=== PATIENT | female | born 1990 | race Caucasian/White ===

== ENCOUNTER → 2017-12-24 16:47 | Outpatient (CLI) | payer OTHER, SELFPAY ==
[2017-12-30 10:31] LABS: HPV Reflexed? NOT INDICATED
== END ==
PROVIDERS: Visit Provider Obstetrics & Gynecology
DX: Z12.4 Encounter for screening for malignant neoplasm of cervix (principal); Z12.72 Encounter for screening for malignant neoplasm of vagina
CPT/HCPCS: 88175; G0145

== ENCOUNTER 2021-02-16 12:13 | Emergency (ER) | payer OTHER, SELFPAY ==
[2021-02-16 12:14] VITALS: BP 143/82; PULSE 88; RESP 18; TEMP 37.1; O2SAT 100; BMI 29.9
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
[2021-02-16 15:33] VITALS: PULSE 82; RESP 17; O2SAT 100
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
--- NOTE | 2021-02-19 10:34 | CM.ED ---
SW Note SW followed up to safety plan that was completed on 02/16/21. SW called patient and she said that she is doing alot better. Patient said that she had slept good the last two nights. Patient has appointment with [facility] IOP/PHP today at 2:00pm. Patient was appreciative of call back. No further SW needs or issues at this time. Plan: Follow up with IOP/PHP Anat HEBERT
== END 2021-02-16 15:34 | disposition home or self-care (01) ==
PROVIDERS: Emergency Provider Emergency Medicine; PCP Family Medicine
DX: F51.4 Sleep terrors [night terrors] (principal)
CPT/HCPCS: 99282

== ENCOUNTER 2021-07-19 16:16 | Outpatient (CLI) | payer OTHER, SELFPAY ==
--- NOTE | 2021-07-19 16:18 | RAD_ITS ---
HISTORY: cough -- STAT. TECHNIQUE: XR Chest 2 Views. # of images incl. paperwork: 2. COMPARISON: None. FINDINGS: CARDIOMEDIASTINAL STRUCTURES: Cardiac silhouette not enlarged. Mediastinal contour unremarkable. LUNGS: Radiographically clear. PLEURA: No pleural effusion or pneumothorax. OSSEOUS STRUCTURES: Unremarkable. RAD/Chest PA and Lateral IMPRESSION: No radiographic evidence of acute cardiopulmonary disease. at 1645 Reported and signed by: Gayla Ray MD Electronically Signed: Gayla Ray MD at 16:44 EST ,
== END 2021-07-19 23:59 | disposition home or self-care (01) ==
LOC: MTRAD 16:17
PROVIDERS: PCP Family Medicine; Referring Provider Physician Assistant; Visit Provider Physician Assistant
DX: R05.9 Cough, unspecified (principal)
CPT/HCPCS: 71046

== ENCOUNTER 2022-06-25 15:59 | Emergency (ER) | payer OTHER, SELFPAY ==
[2022-06-25 16:00] VITALS: BP 140/86; PULSE 72; RESP 18; TEMP 36.6; O2SAT 99; BMI 27.7
[2022-06-25 17:15] LABS: Internal QC Validated? YES +Cl - CLEAR BKGD; Pregnancy, Serum, hCG Quali. NEGATIVE Negative
[2022-06-25 17:17] LABS: Bacteria 0 SEEN /hpf (None Seen); Mucous, Urine 0 SEEN /hpf (<or=2+); Red Blood Cells-Urine 0 SEEN /hpf (0-5); White Blood Cells 0 SEEN /hpf (0-5)
--- NOTE | 2022-06-25 17:17 | EDS_ITS ---
HPI History of Present Illness Chief Complaint: Flank Pain Informant: patient Narrative Narrative: Persistent nontraumatic left flank pain since yesterday. Urine frequency. No fevers. No dysuria. Nausea without vomiting. No history of kidney stones. Ibuprofen taken last night was able to sleep. Prior similar symptoms: No PFSH PFSH Medical History Acute bronchitis, unspecified Acute pharyngitis, unspecified Chest pain Encounter for screening for COVID-19 Severe headache Shoulder pain URI (upper respiratory infection) Home Medications citalopram 20 mg tablet 20 mg PO DAILY anxiety 04/06/17 [History Last Taken 04/14/17 20:00 20 mg] amoxicillin 875 mg-potassium clavulanate 125 mg tablet 1 tab PO BID #20 tabs 07/19/21 [Rx Last Taken Unknown] clonazepam 0.5 mg tablet 2.5 mg PO QHS 06/25/22 [History Last Taken Unknown] hydrocodone-acetaminophen 5-325mg 5mg-325mg 1 tab PO Q6H PRN PRN Pain 3 days #12 TABLETS 06/25/22 [Rx Last Taken Unknown] prazosin 2 mg capsule 2 mg PO QHS 06/25/22 [History Last Taken Unknown] topiramate 100 mg capsule,extended release 24 hr 100 mg PO QHS 06/25/22 [History Last Taken Unknown] trazodone 50 mg tablet 100 mg PO QHS 06/25/22 [History Last Taken Unknown] Allergy/AdvReac Type Severity Reaction Status Date / Time Sulfa (Sulfonamide Allergy Rash Verified 06/25/22 15:59 Antibiotics) Family History Other Diabetes Heart disease Hypertension Surgical History History of Social History Smoking Status: Never smoker ROS ROS ED Constitutional Constitutional ED: Denies chills, fever(s) or sweats Eyes Eyes: Denies change in vision ENT ENT ED: Denies dysphagia or sore throat Cardiovascular Cardiovascular: Denies chest pain, leg edema, palpitations or racing heartbeat Respiratory/Chest Respiratory/Chest: Denies cough, dyspnea or dyspnea on exertion Gastrointestinal Gastrointestinal: Denies abdominal pain, diarrhea, nausea or vomiting Genitourinary Genitourinary ED: Reports urinary frequency; Denies dysuria or hematuria Musculoskeletal Musculoskeletal: Reports back pain; Denies extremity pain or neck pain Integumentary Denies rash or wounds Neurologic Neurologic: Denies headache(s), paresthesias or weakness EXAM Physical Exam Const Vital Signs: 06/25/22 16:00 06/25/22 17:48 06/25/22 18:41 Temperature 97.8 F 98.5 F 98.7 F Temperature Source Temporal Oral Temporal Pulse Rate 72 63 70 Respiratory Rate 18 16 18 Blood Pressure 140/86 H 133/85 H 127/78 H Blood Pressure Mean 104 101 94 Pulse Ox 99 100 99 Oxygen Delivery Method Room Air Room Air Room Air 06/25/22 18:41 06/25/22 20:46 Temperature 98.6 F Temperature Source Temporal Pulse Rate 70 76 Respiratory Rate 16 16 Blood Pressure 127/78 H 134/76 H Blood Pressure Mean 94 Pulse Ox 100 98 Oxygen Delivery Method Room Air Positive well nourished and well developed General Appearance ED: well developed and NAD HEENT Reports moist mucous membranes normocephalic and atraumatic Eyes PERRL, EOMs intact bilaterally and conjunctivae normal General Eye ED: Yes normal appearance of both eyes Neck no lymphadenopathy and supple General: Negative for tenderness Chest Wall Chest: Negative for tenderness Resp normal respiratory effort and normal air movement Effort and Inspection: symmetric chest movement; Negative for respiratory distress Cardio regular rate, regular rhythm and no murmurs Peripheral Pulses: pulses 2+ throughout GI normal to inspection, nondistended, normoactive bowel sounds and non-tender Palpation: Negative for guarding or rebound tenderness present Back/Spine no CVA tenderness and no thoracic nor lumbar tenderness Back/Spine Narrative: Tender left flank there is no rash, no vesicles Extremity normal to inspection General Extremety ED: Negative for edema or tenderness General Extremity: Negative for edema Neuro oriented x3 and no sensory deficits noted Sensorium / Orientation: awake and alert Skin no rashes or lesions noted and no wounds MDM MDM MDM Narrative Medical decision making narrative: Interventions / MDM: Differential diagnosis: Musculoskeletal pain, pyelonephritis, kidney stones, shingles Diagnosis considered but do not suspect: N/A My EKG interpretation: N/A Imaging independently reviewed and interpreted by myself: CT abdomen pelvis no acute process also read by radiology. External documents reviewed: N/A Test considered but not ordered:N/A ED course: Patient worsening left flank pain there is no current rash for concerns of shingles. Denies any trauma. Denies current urinary symptoms. Work-up with labs White count 7.7 creatinine 0.95. She treated with Toradol Zofran with mild improvement of symptoms. Urine is up for leukocytes. Culture sent. CT scan with no acute process. Reevaluation patient's had discomfort unclear etiology however discussed monitoring for rash that could be shingles. Discussed her urine with 25 leukocytes she is reporting she had urine frequency. Further discussion she states in the past 8 days had a urine culture from her PCP initially obtained on the third positive findings for which she was started on amoxicillin. She had a repeat culture a few days later that was negative. Discussed she is likely on the appropriate antibiotics due to culture results. I do not feel additional antibiotics or changing is required. This culture today will be pending. Showed continue ibuprofen she agreed short close of hydrocodone to use as needed. Outpatient follow-up with return precautions. All questions were answered. Re-evaluation: stable Disposition discussed with patient/family/significant other: Patient Case discussed with consulting clinician: N/A Lab Data Attestation: I reviewed the patient's lab results. Labs: Laboratory Results - last 24 hr 06/25/22 06/25/22 06/25/22 17:00 17:00 17:00 WBC 7.7 RBC 4.29 Hgb 13.0 Hct 39.2 MCV 91.4 MCH 30.3 MCHC 33.2 RDW Std Deviation 39.4 RDW Coeff of Shon 11.9 Plt Count 229 MPV 10.7 Immature Gran % (Auto) 0.400 Neut % (Auto) 53.8 Lymph % (Auto) 34.9 [place] % (Auto) 6.5 Eos % (Auto) 3.8 Baso % (Auto) 0.6 Absolute Neuts (auto) 4.2 Absolute Lymphs (auto) 2.69 Nucleated RBC % 0 Sodium 139 Potassium 3.7 Chloride 110 H Carbon Dioxide 21.0 Anion Gap 8 BUN 9 Creatinine 0.95 Estim Creat Clear Calc 81.91 Est GFR (MDRD) Af Amer 87 Est GFR (MDRD) Non-Af 72 BUN/Creatinine Ratio 9.4 L Glucose 96 Calcium 8.8 Serum , Qual NEGATIVE Urine Color Urine Clarity Urine pH Ur Specific [place] Urine Protein Urine Glucose (UA) Urine Ketones Urine Occult Blood Urine Nitrite Urine Bilirubin Urine Urobilinogen Ur Leukocyte Esterase Urine RBC Urine WBC Ur Squamous Epith Cells Urine Bacteria Urine Mucus 06/25/22 17:10 WBC RBC Hgb Hct MCV MCH MCHC RDW Std Deviation RDW Coeff of Shon Plt Count MPV Immature Gran % (Auto) Neut % (Auto) Lymph % (Auto) [place] % (Auto) Eos % (Auto) Baso % (Auto) Absolute Neuts (auto) Absolute Lymphs (auto) Nucleated RBC % Sodium Potassium Chloride Carbon Dioxide Anion Gap BUN Creatinine Estim Creat Clear Calc Est GFR (MDRD) Af Amer Est GFR (MDRD) Non-Af BUN/Creatinine Ratio Glucose Calcium Serum , Qual Urine Color Yellow Urine Clarity Clear Urine pH 6.0 Ur Specific [place] 1.005 Urine Protein Negative Urine Glucose (UA) Normal Urine Ketones Negative Urine Occult Blood Negative Urine Nitrite Negative Urine Bilirubin Negative Urine Urobilinogen Normal Ur Leukocyte Esterase 25 H Urine RBC 0 SEEN Urine WBC 0 SEEN Ur Squamous Epith Cells 0-5 SEEN Urine Bacteria 0 SEEN Urine Mucus 0 SEEN Radiography Diagnostic Testing: Clinical Impression(s) from Imaging Studies Abdomen/Pelvis CT 06/25/22 18:28 IMPRESSION: 1. Negative CT abdomen and pelvis without oral or IV contrast. 2. No evidence of renal calcifications or CT evidence of obstructive uropathy. Electronically Signed: Ross Rogers MD at 19:46 EST Reading Location ID and State: [facility] / [place] Tel , Service support , Discharge Plan Triage Chief Complaint: Flank Pain ED Provider: Terence Schafer Dx/Rx/DC Orders Clinical Impression: Left flank pain, Urine frequency Instructions: ED Flank Pain, Uncertain Cause Prescriptions: New hydrocodone-acetaminophen [hydrocodone-acetaminophen] 5-325 mg tablet 1 tab PO Q6H PRN PRN (Reason: Pain) 3 Days Qty: 12 0RF No Action amoxicillin-pot clavulanate 875-125 mg tablet 1 tab PO BID Qty: 20 0RF citalopram 20 MG tablet 20 mg PO DAILY trazodone 50 mg tablet 100 mg PO QHS Label Comments: TAKE 2 TABLETS BY MOUTH AT BEDTIME clonazepam 0.5 mg tablet 2.5 mg PO QHS Label Comments: TAKE 1 & 1/2 (ONE & ONE-HALF) TABLETS BY MOUTH ONCE DAILY prazosin 2 mg capsule 2 mg PO QHS Label Comments: TAKE 1 CAPSULE BY MOUTH AT BEDTIME topiramate 100 mg Capsule,Extended Release 24hr 100 mg PO QHS Referrals: Sheree Navarrete PA-C [Non-Staff] - 3-5 Days if not improving Activity Restrictions/Additional Instructions: CT abdomen pelvis no acute process. Labs are stable. Urine with 25 leukocytes, culture will be sent. Finish your current antibiotic. Continue ibuprofen use hydrocodone as needed. Monitor for any rash for potential shingles. Follow-up with your doctor. Disposition Disposition: Home, Self Care Discharge Date/Time: 06/25/22 21:35
[2022-06-25 17:21] LABS: Color, Urine Yellow (Yellow); Glucose, Dipstick Normal (Normal); Ketone-Dipstick Negative (Negative); Leukocyte Esterase-Dipstick 25 /ul (Negative); Nitrite-Dipstick Negative (Negative); Occult Blood-Urine Negative /ul (Negative); Protein-Dipstick Negative (Negative); Specific Gravity, Urine 1.005 (1.002-1.030); Urine Bilirubin Dipstick Negative (Negative); Urine Clarity Clear (Clear); Urine Urobilinogen Normal (Normal)
[2022-06-25] MEDS: 0.9% Normal Saline 1,000 ML 250 ML IV (17:39)
[2022-06-25] MEDS: Ondansetron 4 MG/2 ML Vial IV (17:40)
[2022-06-25] MEDS: Ketorolac 15 MG/ML Vial IV (17:43)
[2022-06-25 17:48] VITALS: BP 133/85; PULSE 63; RESP 16; TEMP 36.9; O2SAT 100
[2022-06-25 18:10] LABS: Squamous Epithelial Cells - UA 0-5 SEEN /hpf (5-10)
--- NOTE | 2022-06-25 18:28 | CT_ITS ---
INDICATION: Kidney Stone EXAMINATION: CT ABDOMEN AND PELVIS WITHOUT CONTRAST - CT Abdomen And Pelvis W/O Contrast Injection TECHNIQUE: Helically acquired images were obtained of the abdomen and pelvis without oral or IV contrast. A radiation dose optimization technique was used for this scan. IV Contrast dosage and agent: None. Oral contrast: None. RADIATION DOSAGE (If Supplied By Facility): CTDIvol = ( 9.48 ) mGy, DLP = ( 461.72 ) mGycm COMPARISON: None. FINDINGS: LOWER CHEST: Lung bases are clear. No cardiomegaly or pericardial effusion. LIVER: The liver has normal configuration and density given the limitation of noncontrast exam. No focal mass. GALLBLADDER AND BILIARY TREE: Gallbladder is contracted, no radiodense calcifications present. No gallbladder distension or wall edema. No intra- or extrahepatic biliary ductal dilation. PANCREAS: No focal cystic or solid mass. SPLEEN: Normal size without focal cystic or solid mass. ADRENAL GLANDS: No nodules. KIDNEYS AND URETERS: Normal renal size and position. No hydronephrosis. PERITONEUM: No ascites or free air. No other fluid collection. BOWEL: No evidence of acute appendicitis. No stomach or bowel distension. No focal inflammatory change. LYMPH NODES: No enlarged mesenteric or retroperitoneal lymph nodes. VESSELS: Aorta is non-dilated. URINARY BLADDER: Unremarkable. REPRODUCTIVE ORGANS: No pelvic masses. ABDOMINAL WALL: No discrete abdominal or pelvic wall hernia. BONES: No lytic or blastic abnormality. CT/Abdomen/Pelvis without Cont IMPRESSION: 1. Negative CT abdomen and pelvis without oral or IV contrast. 2. No evidence of renal calcifications or CT evidence of obstructive uropathy. Electronically Signed: Ross Rogers MD at 19:46 EST ,
[2022-06-25 18:36] LABS: Absolute Lymphocyte Count 2.69 X10^3/uL (0.83-4.51); Absolute Neutrophil Count 4.2 X10^3/uL (2.0-7.7); Basophil# 0.05 X10^3/uL; Basophil% 0.6 % (0-1); Eosinophil# 0.29 X10^3/uL; Eosinophils% 3.8 % (0-5); Hematocrit 39.2 % (37-47); Lymphocyte # 2.69 X10^3/ul (0.83-4.51); Lymphocyte % 34.9 % (19-41); Mean Corp Hgb Conc 33.2 g/dL (32-36); Mean Corpuscular Hgb 30.3 pg (27.0-32.0); Mean Corpuscular Volume 91.4 fL (81-99); Mean Platelet Vol. 10.7 fl (6.2-12.0); Monocyte% 6.5 % (0-10); NRBC Flagged by Analyzer 0 % (0-5); Neutrophil # 4.15 X10^3/uL (2.7-7.7); Neutrophil % 53.8 % (47-70); Platelet Count 229 K/mm3 (150-450); RBC Distribution Width CV 11.9 % (11.6-14.6); RBC Distribution Width SD 39.4 fl (35.1-43.9); Red Blood Count 4.29 M/mm3 (4.2-5.4); White Blood Count 7.7 K/mm3 (4.4-11.0)
[2022-06-25 18:41] VITALS: BP 127/78; PULSE 70; RESP 16; RESP 18; TEMP 37; TEMP 37.1; O2SAT 100; O2SAT 99
[2022-06-25 18:47] LABS: Anion Gap 8 (5-15); BUN 9 mg/dL (7-18); BUN/Creat Ratio 9.4 RATIO (10-20); Calcium,Total 8.8 mg/dL (8.5-10.1); Chloride 110 mmol/L (98-107); Creatinine, Serum 0.95 mg/dL (0.55-1.02); EST Glomerular Filtration Rate 72 mL/min (>60); Est Glom Filt Rate - Afr Amer 87 mL/min (>60); Estimated Creatinine Clearance 81.91 ml/min; Glucose 96 mg/dL (74-106); Potassium 3.7 mmol/L (3.5-5.1); Sodium Level 139 mmol/L (136-145)
[2022-06-25 20:46] VITALS: BP 134/76; PULSE 76; RESP 16; O2SAT 98
== END 2022-06-25 21:35 | disposition home or self-care (01) ==
PROVIDERS: Emergency Provider Emergency Medicine; Visit Provider Emergency Medicine
DX: R10.9 Unspecified abdominal pain (principal); R35.0 Frequency of micturition; R11.0 Nausea; Z79.899 Other long term (current) drug therapy
CPT/HCPCS: 74176; 80048; 81001; 84703; 85025; 87086; 96361; 96374; 96375; 99282; J7030; A4216; J2405